=== PATIENT | female | born 1965 | race Caucasian/White ===

== ENCOUNTER 2021-06-23 04:26 | Emergency (ER) | payer MEDICARE, OTHER ==
[~2021-06-23] VITALS: Ht 162.6 cm; Wt 78.9 kg
--- NOTE | 2021-06-23 04:37 | NUR ---
TO ER BED 8
[2021-06-23] MEDS ORDERED: methylPREDNISolone SOD SUCC 125 MG/2ML VIAL IV ONE (05:00)
[2021-06-23] MEDS: ALBUTEROL FS 2.5 MG/3 ML VIAL.NEB CONTNEB ONE ×2 (05:10→05:35)
[2021-06-23] MEDS: IPRATROPIUM NEB FS 0.5 MG/2.5 ML AMPUL.NEB NEB ONE ×2 (05:10→05:36)
--- NOTE | 2021-06-23 05:11 | NUR ---
PATIENT OK WITH LAB WORK. PATIENT DOES NOT WANT IV ACCESS. RISK AND BENEFITS EXPLAINED TO PT X 3.
[2021-06-23] MEDS ORDERED: IPRATROPIUM NEB FS 0.5 MG/2.5 ML AMPUL.NEB ONE (05:13)
[2021-06-23] MEDS ORDERED: ALBUTEROL FS 2.5 MG/3 ML VIAL.NEB ONE (05:13)
--- NOTE | 2021-06-23 05:25 | NUR ---
[facility]SA SWAB COLLECTED AND SENT TO LAB. PATIENT'S BELONGINGS LIST DONE.
[2021-06-23 05:31] LABS: BASOPHILS # (AUTO) 0.1 K/uL (0.0-0.2); BASOPHILS % (AUTO) 1.2 % (0.0-2.0); EOSINOPHILS % (AUTO) 5.6 % (0.0-6.0); HEMATOCRIT 38 % (33-45); HEMOGLOBIN 12.6 g/dL (11.5-14.8); LYMPHOCYTES # (AUTO) 1.8 K/uL (0.8-4.8); MEAN CORPUSCULAR HGB CONC 33 g/dl (31.0-36.0); MEAN CORPUSCULAR VOLUME 94 fL (82-100); MONOCYTES # (AUTO) 1.4 K/uL (0.1-1.30); MONOCYTES % (AUTO) 18.2 % (2.0-12.0); PLATELET COUNT (AUTO) 267 K/uL (150-450); RED BLOOD CELL COUNT(AUTO) 4.05 MIL/uL (4.0-5.2); WHITE BLOOD COUNT (AUTO) 7.6 K/uL (4.3-11.0)
--- NOTE | 2021-06-23 05:31 | NUR ---
RESP NOTES PT angry and refusing HHN TX. RN and ER MD notified.
[2021-06-23 05:45] LABS: CALCIUM, SERUM 9.1 mg/dL (8.5-10.1); CARBON DIOXIDE 30 mmol/L (21-32); CHLORIDE 98 mmol/L (98-107); CREATININE 0.4 mg/dL (0.6-1.3); GLUCOSE 109 mg/dL (74-106); POTASSIUM 3.9 mmol/L (3.5-5.1); SODIUM SERUM 135 mmol/L (136-145); UREA NITROGEN, BLOOD 6 mg/dL (7-18)
--- NOTE | 2021-06-23 05:47 | NUR ---
CALLED FACILITY TO INFORM THAT PT IS DOES NOT WANT TO STAY MEDICALLY AND LEAVE AMA FROM HOSPITAL. SPOKE WITH BETY MARTINEZ AND WAS ADVISED TO SPEAK WITH THE NURSING RECYCLING OPERATIONS MANAGER COMING IN AT 0800.
--- NOTE | 2021-06-23 05:49 | NUR ---
CALLED PATIENT SISTER RACHNA, NO ANSWER.
[2021-06-23 05:51] LABS: ALANINE AMINOTRANSFERASE 13 U/L (12-78); ALBUMIN 2.9 g/dL (3.4-5.0); ALKALINE PHOSPHATASE 53 U/L (46-116); ASPARTATE AMINOTRANSFERASE 17 U/L (15-37); BILIRUBIN,DIRECT 0.1 mg/dL (0.0-0.2); BILIRUBIN,TOTAL 0.3 mg/dL (0.2-1.0)
--- NOTE | 2021-06-23 08:43 | NUR ---
CALLED [facility] [phone] YOVANY WANTS TO TALK TO CYNDIE FIRST AND WILL CALL US BACK.
--- NOTE | 2021-06-23 11:49 | NUR ---
CALLED [facility] [phone] LEFT [facility] TO CALL US BACK.
--- NOTE | 2021-06-23 14:00 | NUR ---
CALLED [facility] ASKING CM TO CONTACT US FOR PT TO BE DC
--- NOTE | 2021-06-23 16:00 | NUR ---
CALLED [facility] FOR CM TO CALL US... THEY WILL DO SO SOON.
--- NOTE | 2021-06-23 18:20 | NUR ---
LATIA MUNROE CALLED FOR CM TO CALL US...
--- NOTE | 2021-06-23 20:27 | NUR ---
[facility] [phone] SPOKE WITH DANAY NOT READY TO ACCEPT PT OF YET.
--- NOTE | 2021-06-23 22:36 | NUR ---
spoke to Michael at [facility], pt has a bed at her facility and Raul will be her rn
--- NOTE | 2021-06-23 22:42 | NUR ---
CALLED [facility]. ETA FOR TRANSPORT IS 2 HOURS.
--- NOTE | 2021-06-24 02:10 | NUR ---
gave report to ems
--- NOTE | 2021-06-24 02:11 | NUR ---
[facility] AT BED SIDE TO [facility] FITTER THE PT
--- NOTE | 2021-06-24 02:13 | NUR ---
Gave report to bolivar Carter for gus
[2021-06-24 02:48] VITALS: BP 139/84
== END 2021-06-24 02:09 ==
LOC: ER 04:38
DX: R09.02 Hypoxemia (principal); J44.9 Chronic obstructive pulmonary disease, unspecified; Z86.16 Personal history of COVID-19; E78.5 Hyperlipidemia, unspecified; I10 Essential (primary) hypertension; I07.1 Rheumatic tricuspid insufficiency; Z20.822 Contact with and (suspected) exposure to COVID-19
CPT/HCPCS: 36415; 71045-TC; 80048-TC; 80076-TC; 84484-TC; 85025-TC; 87081-TC; C9803